=== PATIENT | female | born 1945 | race Caucasian/White ===

== ENCOUNTER 2022-11-13 11:10 | Emergency (ER) | payer MEDICARE, BC ==
--- NOTE | 2022-11-13 12:03 | ED ---
General Adult HPI - General Chief complaint: Fall Stated complaint: fall - head injury & hip pain Time Seen by Provider: 11/13/22 11:34 Source: patient, RN notes reviewed Mode of arrival: wheelchair Limitations: no limitations - History of Present Illness Initial comments: 77-year-old female presents emergency Department with chief complaint of fall. She states that she was on a rolling chair earlier today when it slipped out from under her and she fell backwards hitting the back of her head on the ground. She also reports landing on her right hip. She reports that she is able to walk but it is painful. Patient admits to mild headache. She is having any abrasions or lacerations on her head. - Related Data Home Medications Medication Instructions Recorded Confirmed Aspirin 81 mg PO DIRECTED 12/08/13 12/09/13 Atenolol/Chlorthalidone 1 tab PO DAILY 12/08/13 12/08/13 [Atenolol-Chlorthalidone 50-25] Cetirizine HCl [Zyrtec] 10 mg PO DAILY PRN 12/08/13 12/08/13 Colchicine [Colcrys] 0.6 mg PO DAILY PRN 12/08/13 12/08/13 Verapamil HCl [Verelan] 240 mg PO DAILY 12/08/13 12/08/13 sitaGLIPtin [Januvia] 100 mg PO DAILY 12/08/13 12/08/13 Allergies Allergy/AdvReac Type Severity Reaction Status Date / Time codeine Allergy Hallucinati Verified 11/13/22 11:29 ons Sulfa (Sulfonamide Allergy Rash/Hives Verified 11/13/22 11:29 Antibiotics) Review of Systems ROS Statement: Those systems with pertinent positive or pertinent negative responses have been documented in the HPI. ROS Other: All systems not noted in ROS Statement are negative. Past Medical History Past Medical History: Diabetes Mellitus, GERD/Reflux, Hyperlipidemia, Hypertension Additional Past Medical History / Comment(s): celiac History of Any Multi-Drug Resistant Organisms: None Reported Past Surgical History: Appendectomy, Cholecystectomy, Hysterectomy, Tonsillectomy Additional Past Surgical History / Comment(s): cardiac cath 3 or 4 years ago clear Past Anesthesia/Blood Transfusion Reactions: Previous Problems w/ Anesthesia Additional Past Anesthesia/Blood Transfusion Reaction / Comment(s): hard to wake up from Past Psychological History: No Psychological Hx Reported Smoking Status: Former smoker Past Alcohol Use History: None Reported Past Drug Use History: None Reported - Past Family History Mother Additional Family Medical History / Comment(s): emphazyma General Exam Limitations: no limitations General appearance: alert, in no apparent distress Head exam: Present: atraumatic, normocephalic, normal inspection Eye exam: Present: normal appearance, PERRL, EOMI. Absent: scleral icterus, conjunctival injection, periorbital swelling ENT exam: Present: normal exam, mucous membranes moist Neck exam: Present: normal inspection. Absent: tenderness, meningismus, lymphadenopathy Respiratory exam: Present: normal lung sounds bilaterally. Absent: respiratory distress, wheezes, rales, rhonchi, stridor Cardiovascular Exam: Present: regular rate, normal rhythm, normal heart sounds. Absent: systolic murmur, diastolic murmur, rubs, gallop, clicks GI/Abdominal exam: Present: soft, normal bowel sounds. Absent: distended, tenderness, guarding, rebound, rigid Extremities exam: Present: normal inspection, full ROM, normal capillary refill. Absent: tenderness, pedal edema, joint swelling, calf tenderness Back exam: Present: normal inspection Neurological exam: Present: alert, oriented X3, CN II-XII intact, other (GCS 15) Psychiatric exam: Present: normal affect, normal mood Skin exam: Present: warm, dry, intact, normal color. Absent: rash Course Vital Signs 11/13/22 11/13/22 11:26 13:43 Temperature 97.6 F 97.3 F L Pulse Rate 65 62 Respiratory 18 17 Rate Blood Pressure 153/81 150/62 O2 Sat by Pulse 99 97 Oximetry Medical Decision Making - Medical Decision Making Was pt. sent in by a medical professional or institution (, PA, MARINE WELDER, urgent care, hospital, or detention...) When possible be specific @ -No Did you speak to anyone other than the patient for history (EMS, parent, family, police, friend...)? What history was obtained from this source @ -No Did you review nursing and triage notes (agree or disagree)? Why? @ -I reviewed and agree with nursing and triage notes Were old charts reviewed (outside hosp., previous admission, EMS record, old EKG, old radiological studies, urgent care reports/EKG's, detention records)? Report findings @ -No old charts were reviewed Differential Diagnosis (chest pain, altered mental status, abdominal pain women, abdominal pain men, vaginal bleeding, weakness, fever, dyspnea, syncope, headache, dizziness, GI bleed, back pain, seizure, CVA, palpatations, mental health, musculoskeletal)? @ -Intracranial hemorrhage, headache, EKG interpreted by me (3pts min.). @ -None X-rays interpreted by me (1pt min.). @ -X-ray right hip and pelvis show no evidence of acute fracture CT interpreted by me (1pt min.). @ -CT brain and C-spine showed no evidence for acute intracranial hemorrhage, no fracture U/S interpreted by me (1pt. min.). @ -None done What testing was considered but not performed or refused? (CT, X-rays, U/S, labs)? Why? @ -None What meds were considered but not given or refused? Why? @ -None Did you discuss the management of the patient with other professionals (professionals i.e. , PA, MARINE WELDER, lab, RT, psych nurse, forensic social worker, roll sheeting cutter, teacher, home lending officer, rifle case repairer)? Give summary @ -No Was smoking cessation discussed for >3mins.? @ -No Was critical care preformed (if so, how long)? @ -No Were there social determinants of health that impacted care today? How? (Homelessness, low income, unemployed, alcoholism, drug addiction, transportation, low edu. Level, literacy, decrease access to med. care, detention, rehab)? @ -No Was there de-escalation of care discussed even if they declined (Discuss DNR or withdrawal of care, Hospice)? DNR status @ -No What co-morbidities impacted this encounter? (DM, HTN, Smoking, COPD, CAD, Cancer, CVA, ARF, Chemo, Hep., AIDS, mental health diagnosis, sleep apnea, morbid obesity)? @ -None Was patient admitted / discharged? Hospital course, mention meds given and rout e, prescriptions, significant lab abnormalities, going to OR and other pertinent info. @ -Discharged. Patient presented to emergency department chief complaint of fall. She states that she hit her head on the ground. She denies loss of consciousness, blood thinners. CT brain and C-spine showed no evidence for acute intracranial hemorrhage, no evidence of fracture. X-ray of right hip and pelvis showed no evidence for acute fracture. Patient is able to ambulate although painful. She states that she has a walker at home that she will use. Patient was given IM Toradol after computed tomography scan report back, Tylenol, lidocaine patch. Patient stable at time of discharge. she'll follow up with her primary care provider when she returns back home to anyone. His di scussed with my attending, Dr. Ghosh. Undiagnosed new problem with uncertain prognosis? @ -No Drug Therapy requiring intensive monitoring for toxicity (Heparin, Nitro, Insulin, Cardizem)? @ -No Were any procedures done? @ -No Diagnosis/symptom? @ -Fall Acute, or Chronic, or Acute on Chronic? @ -Acute Uncomplicated (without systemic symptoms) or Complicated (systemic symptoms)? @ -Uncomplicated Side effects of treatment? @ -No Exacerbation, Progression, or Severe Exacerbation? @ -No Poses a threat to life or bodily function? How? (Chest pain, USA, SC, pneumonia, PE, COPD, DKA, ARF, appy, cholecystitis, CVA, Diverticulitis, Homicidal, Suicidal, threat to staff... and all critical care pts) @ -No Disposition Clinical Impression: Fall Disposition: HOME SELF-CARE Condition: Stable Instructions (If sedation given, give patient instructions): Fall Prevention for Older Adults (ED) Additional Instructions: Please return to the emergency department for new or worsening symptoms. Is patient prescribed a controlled substance at d/c from ED?: No Referrals: Nonstaff,Physician [Primary Care Provider] - 1-2 days Time of Disposition: 13:16
--- NOTE | 2022-11-13 12:37 | CT ---
EXAMINATION TYPE: CT brain jack wo con DATE OF EXAM: 11/13/2022 COMPARISON: None HISTORY: Pain headache CT DLP: 1519.8 mGycm, Automated exposure control for dose reduction was used. CONTRAST: Patient injected with 0 mL of Isovue 300. CT of the brain is performed utilizing 3 mm thick sections through the posterior fossa and 3 mm thick sections through the remaining calvarium. Study is performed within 24 hours of arrival to the hospital. No abnormal hyperdensity is present to suggest an acute intracranial hemorrhage. No mass lesion is evident. No acute infarcts are evident. Minimal periventricular white matter hypodensity may present, likely on the basis of chronic white matter ischemic changes. Ventricles and sulci are somewhat prominent for the patient age. Paranasal sinuses and mastoid air cells within the [id number] are clear. IMPRESSIONS: 1. No acute intracranial process. Follow-up MRI can be performed as clinically indicated CT cervical spine. COMPARISON: None CT of the cervical spine is performed in the axial plane at 2 mm thick sections. Reconstructed image s in the coronal, and sagittal plane are reviewed on the computer. No acute fractures are evident. Vertebral body alignment is normal. There is narrowing of disc height C4-5 C5-6 C6-7. Some endplate spurring is present C4-5 C5-6. Anteri or vertebral body spurring is present C3-C7. Vertebral body heights are preserved. No spinal canal stenosis is evident. Some central endplate spurring is present at C6-7 with mild ante rior thecal sac compression. Endplate changes have anterior thecal sac compression at C4-5. Mild foraminal narrowing is present due to uncovertebral joint hypertrophy IMPRESSIONS: 1. Degenerative disc changes with endplate spurring most notably C4-5 C5-6. 2. No acute osseous abnormality
--- NOTE | 2022-11-13 12:39 | XR ---
EXAMINATION TYPE: XR Hip RT and AP Pelvis DATE OF EXAM: 11/13/2022 COMPARISON: None HISTORY: Fall back pain TECHNIQUE: AP pelvis and two-view right hip FINDINGS: Femoral head articulates with the acetabulum. Joint space is preserved. No acute fracture o r dislocation is evident. Sacroiliac joints and symphysis pubis are normal. Normal bowel gas is prese nt. IMPRESSION: 1. No acute osseous abnormality right hip
--- NOTE | 2022-11-13 12:40 | XR ---
EXAMINATION TYPE: XR lumbar spine 2 or 3V DATE OF EXAM: 11/13/2022 COMPARISON: None HISTORY: Fall, back pain TECHNIQUE: 3 view lumbar spine FINDINGS: There are 5 lumbar-type vertebral bodies. The pedicles are intact. Posterior disc space josephine rowing may be present at L3-4, L4-5 and L5-S1. Vertebral body heights are preserved. Alignment appear s normal. Note is made of vascular calcification within the aorta IMPRESSION: 1. Mild degenerative disc changes lower lumbar spine. 2. No acute osseous abnormality
[2022-11-13] MEDS ORDERED: ACETAMINOPHEN TAB 500 MG TAB PO STA (12:43)
[2022-11-13] MEDS ORDERED: LIDOCAINE 5% PATCH TOPICAL STA (12:43)
[2022-11-13] MEDS ORDERED: KETOROLAC 15 MG/ML 1 ML VIAL IM STA (12:43)
[2022-11-13 13:44] VITALS: BP 150/62; PULSE 62; RESP 17; TEMP 97.3
== END 2022-11-13 13:43 | disposition home or self-care (01) ==
LOC: EC 11:10
DX: S09.90XA Unspecified injury of head, initial encounter (principal); E11.9 Type 2 diabetes mellitus without complications; K21.9 Gastro-esophageal reflux disease without esophagitis; I10 Essential (primary) hypertension; Z87.891 Personal history of nicotine dependence; Z88.2 Allergy status to sulfonamides; Z88.5 Allergy status to narcotic agent; Z79.82 Long term (current) use of aspirin; W01.198A Fall on same level from slipping, tripping and stumbling with subsequent striking against other object, initial encounter
CPT/HCPCS: 72100; 73502; 72125; 70450; 99284; 96372; J1885

== ENCOUNTER 2022-11-15 12:26 | Observation (INO) | payer MEDICARE, BC ==
[2022-11-15] MEDS ORDERED: SCOPOLAMINE 1 MG/72 HR PATCH TRANSDERM STA (12:56)
[2022-11-15 13:33] LABS: Basophils # (A) 0.1 k/uL (0-0.2); Basophils % (A) 1 %; Eosinophils # (A) 0.2 k/uL (0-0.7); Eosinophils % (A) 4 %; HCT 38.4 % (34.0-46.0); HGB 13.1 gm/dL (11.4-16.0); Lymphocytes % (A) 30 %; MCH 28.9 pg (25.0-35.0); MCHC 34.1 g/dL (31.0-37.0); MCV 84.6 fL (80.0-100.0); Mean Platelet Volume 8.6; Monocytes # (A) 0.3 k/uL (0-1.0); Monocytes % (A) 4 %; Neutrophils # (A) 4.2 k/uL (1.3-7.7); Neutrophils % (A) 61 %; Platelet Count 157 k/uL (150-450); RBC 4.54 m/uL (3.80-5.40); RDW 14.7 % (11.5-15.5); WBC 6.9 k/uL (3.8-10.6)
[2022-11-15 13:41] LABS: ALT 20 U/L (4-34); AST 27 U/L (14-36); African American GFR (CKD) 61 (>60 ml/min/1.73 sqM); Albumin 3.8 g/dL (3.5-5.0); Alkaline Phosphatase 71 U/L (38-126); Anion Gap 9 mmol/L; Blood Urea Nitrogen 29 mg/dL (7-17); Calcium 9.8 mg/dL (8.4-10.2); Carbon Dioxide 22 mmol/L (22-30); Chloride 108 mmol/L (98-107); Glucose 150 mg/dL (74-99); Non-African American GFR(CKD) 53 (>60 ml/min/1.73 sqM); Potassium 4.5 mmol/L (3.5-5.1); Sodium 139 mmol/L (137-145); Total Bilirubin 0.4 mg/dL (0.2-1.3); Total Protein 7.1 g/dL (6.3-8.2)
--- NOTE | 2022-11-15 14:15 | ED ---
General Adult HPI - General Chief complaint: Dizziness Stated complaint: Dizziness recheck from 11/13 visit (fall) Time Seen by Provider: 11/15/22 12:30 Source: patient, family, RN notes reviewed, old records reviewed Mode of arrival: wheelchair Limitations: physical limitation - History of Present Illness Initial comments: This is a 77-year-old female presents emergency Department complaining about being very dizzy. Patient states she was seen here a few days ago after she had fallen and hit the back of her head quite hard. Patient states she was dazed after that did not lose consciousness. Patient states she came to the emergency department and was evaluated had a CAT scan at that time. Patient states about 5 hours after she left she started becoming very dizzy particularly when she bent over. Patient states she's has had vertigo before but this seems worse. Patient states she sits still she is not dizzy. Patient denies a headache pat ient denies any numbness or weakness per patient denies chest pain palpitations difficulty breathing shortness of breath. - Related Data Home Medications Medication Instructions Recorded Confirmed Aspirin EC [Ecotrin Low Dose] 81 mg PO DAILY 11/15/22 11/15/22 Atorvastatin [Lipitor] 10 mg PO DAILY 11/15/22 11/15/22 Brimonidine Tartrate/Timolol 1 drop BOTH EYES BID 11/15/22 11/15/22 [Combigan 0.2%-0.5% Eye Drops] Glimepiride [Amaryl] 4 mg PO BID 11/15/22 11/15/22 Lisinopril/Hydrochlorothiazide 1 tab PO DAILY 11/15/22 11/15/22 [Zestoretic 20-12.5] Vit C/E/Zn/Coppr/Lutein/Zeaxan 1 cap PO BID 11/15/22 11/15/22 [Preservision Areds 2 Softgel] atenoloL [Tenormin] 50 mg PO BID 11/15/22 11/15/22 sitaGLIPtin PHOS/metFORMIN HCL 1 tab PO DAILY 11/15/22 11/15/22 [Janumet Xr 100-1,000 mg Tablet] Previous Rx's Medication Instructions Recorded Cyanocobalamin [Vitamin B-12] 1,000 mcg PO DAILY #60 tab 11/18/22 Meclizine [Antivert] 25 mg PO TID PRN #30 tab 11/18/22 amLODIPine [Norvasc] 10 mg PO DAILY #60 tab 11/18/22 Allergies Allergy/AdvReac Type Severity Reaction Status Date / Time codeine Allergy Hallucinati Verified 11/15/22 15:44 ons Sulfa (Sulfonamide Allergy Rash/Hives Verified 11/15/22 15:44 Antibiotics) Review of Systems ROS Statement: Those systems with pertinent positive or pertinent negative responses have been documented in the HPI. ROS Other: All systems not noted in ROS Statement are negative. Past Medical History Past Medical History: Diabetes Mellitus, GERD/Reflux, Hyperlipidemia, Hypertension Additional Past Medical History / Comment(s): celiac History of Any Multi-Drug Resistant Organisms: None Reported Past Surgical History: Appendectomy, Cholecystectomy, Hysterectomy, Tonsillectomy Additional Past Surgical History / Comment(s): cardiac cath 3 or 4 years ago clear Past Anesthesia/Blood Transfusion Reactions: Previous Problems w/ Anesthesia Additional Past Anesthesia/Blood Transfusion Reaction / Comment(s): hard to wake up from Past Psychological History: No Psychological Hx Reported Smoking Status: Former smoker Past Alcohol Use History: None Reported Past Drug Use History: None Reported - Past Family History Mother Additional Family Medical History / Comment(s): emphazyma General Exam - General Exam Comments Initial Comments: GENERAL: Patient is well-developed and well-nourished. Patient is nontoxic and well-hydrated and is in mild distress. ENT: Neck is soft and supple. No significant lymphadenopathy is noted. Oropharynx is clear. Moist mucous membranes. Neck has full range of motion without eliciting any pain. EYES: The sclera were anicteric and conjunctiva were pink and moist. Extraocular movements were intact and pupils were equal round and reactive to light. Eyelids were unremarkable. PULMONARY: Unlabored respirations. Good breath sounds bilaterally. No audible rales rhonchi or wheezing was noted. CARDIOVASCULAR: There is a regular rate and rhythm without any murmurs gallops or rubs. ABDOMEN: Soft and nontender with normal bowel sounds. SKIN: Skin is clear with no lesions or rashes and otherwise unremarkable. NEUROLOGIC: Patient is alert and oriented x3. Cranial nerves II through XII are grossly intact. Motor and sensory are also intact. Normal speech, volume and content. Symmetrical smile. Cerebellar exam grossly intact. Patient's dizziness is worsened if she moves her head up and down but not side to side MUSCULOSKELETAL: Normal extremities with adequate strength and full range of motion. No lower extremity swelling or edema. No calf tenderness. LYMPHATICS: No significant lymphadenopathy is noted PSYCHIATRIC: Normal psychiatric evaluation. Limitations: physical limitation Course Vital Signs 11/15/22 11/15/22 11/15/22 12:29 12:42 12:46 Temperature 97.8 F 97.9 F Pulse Rate 70 67 Respiratory 16 18 Rate Blood Pressure 136/73 143/65 O2 Sat by Pulse 98 96 97 Oximetry 11/15/22 11/15/22 11/15/22 13:00 14:00 15:00 Temperature Pulse Rate Respiratory Rate Blood Pressure 143/65 140/82 138/78 O2 Sat by Pulse Oximetry 11/15/22 11/15/22 18:16 21:27 Temperature 98.6 F Pulse Rate 54 L 57 L Respiratory 18 19 Rate Blood Pressure 172/81 172/74 O2 Sat by Pulse 98 97 Oximetry Medical Decision Making - Medical Decision Making Was pt. sent in by a medical professional or institution (, PA, WATCHGUARD, urgent care, hospital, or fdc...) When possible be specific @ -[No] Did you speak to anyone other than the patient for history (EMS, parent, family, police, friend...)? What history was obtained from this source @ -[No] Did you review nursing and triage notes (agree or disagree)? Why? @ -I agree with nursing and triage notes Were old charts reviewed (outside hosp., previous admission, EMS record, old EKG, old radiological studies, urgent care reports/EKG's, fdc records)? Report findings @ -I reviewed prior charts and prior radiological studies in this patient Differential Diagnosis (chest pain, altered mental status, abdominal pain women, abdominal pain men, vaginal bleeding, weakness, fever, dyspnea, syncope, headache, dizziness, GI bleed, back pain, seizure, CVA, palpatations, mental health, musculoskeletal)? @ -[not applicable] EKG interpreted by me (3pts min.). @ -[As above] X-rays interpreted by me (1pt min.). @ -[None done] CT interpreted by me (1pt min.). @ -[None done] U/S interpreted by me (1pt. min.). @ -[None done] What testing was considered but not performed or refused? (CT, X-rays, U/S, labs)? Why? @ -[None] What meds were considered but not given or refused? Why? @ -[None] Did you discuss the management of the patient with other professionals (professionals i.e. , PA, WATCHGUARD, lab, RT, psych nurse, social professionals, weekend caregiver, teacher, chief science officer, case packer)? Give summary @ -[No] Was smoking cessation discussed for >3mins.? @ -[No] Was critical care preformed (if so, how long)? @ -[No] Were there social determinants of health that impacted care today? How? (Homelessness, low income, unemployed, alcoholism, drug addiction, transportat ion, low edu. Level, literacy, decrease access to med. care, penitentiary, rehab)? @ -[No] Was there de-escalation of care discussed even if they declined (Discuss DNR or withdrawal of care, Hospice)? DNR status @ -[No] What co-morbidities impacted this encounter? (DM, HTN, Smoking, COPD, CAD, Cancer, CVA, ARF, Chemo, Hep., AIDS, mental health diagnosis, sleep apnea, morbid obesity)? @ -[None] Was patient admitted / discharged? Hospital course, mention meds given and route, prescriptions, significant lab abnormalities, going to OR and other pertinent info. @ -I gave the patient a scopolamine patch. Patient had labs ordered and a CT and a CTA ordered. Dr. Ghosh will be taking over the care of the patient at 3 PM - Lab Data Result diagrams: 11/15/22 13:06 11/15/22 13:06 Lab Results 11/15/22 11/15/22 Range/Units 13:06 13:06 WBC 6.9 (3.8-10.6) k/uL RBC 4.54 (3.80-5.40) m/uL Hgb 13.1 (11.4-16.0) gm/dL Hct 38.4 (34.0-46.0) % MCV 84.6 (80.0-100.0) fL MCH 28.9 (25.0-35.0) pg MCHC 34.1 (31.0-37.0) g/dL RDW 14.7 (11.5-15.5) % Plt Count 157 (150-450) k/uL MPV 8.6 Neutrophils % 61 % Lymphocytes % 30 % Monocytes % 4 % Eosinophils % 4 % Basophils % 1 % Neutrophils # 4.2 (1.3-7.7) k/uL Lymphocytes # 2.0 (1.0-4.8) k/uL Monocytes # 0.3 (0-1.0) k/uL Eosinophils # 0.2 (0-0.7) k/uL Basophils # 0.1 (0-0.2) k/uL Sodium 139 (137-145) mmol/L Potassium 4.5 (3.5-5.1) mmol/L Chloride 108 H (98-107) mmol/L Carbon Dioxide 22 (22-30) mmol/L Anion Gap 9 mmol/L BUN 29 H (7-17) mg/dL Creatinine 1.01 (0.52-1.04) mg/dL Est GFR (CKD-EPI)AfAm 61 (>60 ml/min/1.73 sqM) Est GFR (CKD-EPI)NonAf 53 (>60 ml/min/1.73 sqM) Glucose 150 H (74-99) mg/dL Calcium 9.8 (8.4-10.2) mg/dL Total Bilirubin 0.4 (0.2-1.3) mg/dL AST 27 (14-36) U/L ALT 20 (4-34) U/L Alkaline Phosphatase 71 (38-126) U/L Total Protein 7.1 (6.3-8.2) g/dL Albumin 3.8 (3.5-5.0) g/dL Disposition Clinical Impression: Vertigo, CVA (cerebral vascular accident) Disposition: ADMITTED IP TO THIS [facility] Condition: Stable
--- NOTE | 2022-11-15 15:40 | CT ---
EXAMINATION TYPE: CT brain wo con DATE OF EXAM: 11/15/2022 COMPARISON: 11/13/2022 HISTORY: Fall last week, dizzy since CT DLP: 1123.[address] of the brain was performed. The ventricles, basal cisterns and sulci overlying the cerebral convexities demonstrate mild enlargem ent. There is no evidence for intracranial hemorrhage or sulcal effacement. There is decreased attenuation about the periventricular white matter and deep white matter of both c erebral hemispheres, compatible with chronic small vessel ischemia. Differential diagnosis does inclu de demyelination. No mass effects are seen.No midline shift. Osseous calvarium is intact. If symptoms persist consider MRI. IMPRESSION: 1. Age related atrophic and chronic small vessel ischemic change without acute intracranial process s een at this time.
--- NOTE | 2022-11-15 15:57 | CT ---
EXAMINATION TYPE: CT angio head neck DATE OF EXAM: 11/15/2022 COMPARISON: None HISTORY: Fall last week, dizzy since CT DLP: 1123.6 mGycm CONTRAST: Performed with IV Contrast, patient injected with 65 mL of Isovue 370. Combination Contrast CTA cervical carotids and [place] CTA cervical carotids with 3-D recons truction Contrast CTA of the cervical carotids was performed 3-D reconstruction imaging obtained at a separate workstation. Right carotid system: Mild plaque is seen of the right common carotid artery. There is moderate plaq ue also noted at the carotid bulb and proximal ICA. 50% diameter reduction mid left ICA with moderat e calcific plaque. ECA is patent. Right vertebral artery appears unremarkable. Left carotid system: Mild plaque is seen of the left common carotid artery. There is mild plaque als o noted at the carotid bulb and proximal ICA. No significant diameter reduction. ECA is patent. Lef t vertebral artery appears unremarkable. IMPRESSION: 1. 50% diameter reduction right ICA. CTA [place] with 3-D reconstruction Contrast CTA of the [place] was performed 3-D reconstruction imaging obtained at a separate workstation. Vertebrobasilar system as well as intracranial portions of the internal carotid arteries are patent. There is absence of the right GURVINDER A1 segment which could be an anatomic variant. Strict clinical cor relation is advised. The remaining segments appear to be intact. I do not see evidence for sizable an eurysm or vascular malformation. Please note MRI provides greater sensitivity and specificity. Visu alized brain appears grossly unremarkable. IMPRESSION: 1. There is absence of the right GURVINDER A1 segment which could be an anatomic variant. Strict clinical c orrelation is advised to exclude large vessel occlusion. NASCET criteria was used in interpretation of this exam?
[2022-11-15] MEDS ORDERED: NALOXONE 0.4 MG/ML 1 ML VIAL IV PRN (19:06)
--- NOTE | 2022-11-15 19:06 | ED ---
Medical Decision Making - Medical Decision Making The patient was sent out to me from Dr. Grimes. The patient was signed out pend ing lesion of the imaging. Imaging was obtained and is as below however due to the findings the neuro interventional list, Dr. Ga was contacted regarding these findings. He did state that it was likely an anatomic variant and was not a large vessel occlusions that needed any intervention at this time. He stated the patient could be admitted for further workup at this time. On reevaluation, the patient was resting in bed comfortably. Due to the symptoms and findings, the patient be placed in observation to be seen and evaluated by neurology for possible MRI for possible CVA as a cause of her vertigo. The patient stated that she had continued vertigo symptoms when looking down. The patient was agreeable to this plan and was placed in observation in stable condition. CT interpreted by me (1pt min.). @- A CT and CTA head and neck were obtained and were interpreted by myself and the radiologist showing an absence of the right GURVINDER A1 segment which could be an anatomic variant. Strict clinical correlation is advised to exclude large vessel occlusion. Undiagnosed new problem with uncertain prognosis? @ -[No] Drug Therapy requiring intensive monitoring for toxicity (Heparin, Nitro, Insulin, Cardizem)? @ -[No] Were any procedures done? @ -[No] Diagnosis/symptom? @ -Vertigo, rule out CVA Acute, or Chronic, or Acute on Chronic? @ -Acute on chronic Uncomplicated (without systemic symptoms) or Complicated (systemic symptoms)? @ -Complicated Side effects of treatment? @ -[No] Exacerbation, Progression, or Severe Exacerbation? @ -[No] Poses a threat to life or bodily function? How? (Chest pain, USA, ND, pneumonia, PE, COPD, DKA, ARF, appy, cholecystitis, CVA, Diverticulitis, Homicidal, Suicidal, threat to staff... and all critical care pts) @ -[No] - Lab Data Result diagrams: 11/15/22 13:06 11/15/22 13:06 Lab Results 11/15/22 11/15/22 Range/Units 13:06 13:06 WBC 6.9 (3.8-10.6) k/uL RBC 4.54 (3.80-5.40) m/uL Hgb 13.1 (11.4-16.0) gm/dL Hct 38.4 (34.0-46.0) % MCV 84.6 (80.0-100.0) fL MCH 28.9 (25.0-35.0) pg MCHC 34.1 (31.0-37.0) g/dL RDW 14.7 (11.5-15.5) % Plt Count 157 (150-450) k/uL MPV 8.6 Neutrophils % 61 % Lymphocytes % 30 % Monocytes % 4 % Eosinophils % 4 % Basophils % 1 % Neutrophils # 4.2 (1.3-7.7) k/uL Lymphocytes # 2.0 (1.0-4.8) k/uL Monocytes # 0.3 (0-1.0) k/uL Eosinophils # 0.2 (0-0.7) k/uL Basophils # 0.1 (0-0.2) k/uL Sodium 139 (137-145) mmol/L Potassium 4.5 (3.5-5.1) mmol/L Chloride 108 H (98-107) mmol/L Carbon Dioxide 22 (22-30) mmol/L Anion Gap 9 mmol/L BUN 29 H (7-17) mg/dL Creatinine 1.01 (0.52-1.04) mg/dL Est GFR (CKD-EPI)AfAm 61 (>60 ml/min/1.73 sqM) Est GFR (CKD-EPI)NonAf 53 (>60 ml/min/1.73 sqM) Glucose 150 H (74-99) mg/dL Calcium 9.8 (8.4-10.2) mg/dL Total Bilirubin 0.4 (0.2-1.3) mg/dL AST 27 (14-36) U/L ALT 20 (4-34) U/L Alkaline Phosphatase 71 (38-126) U/L Total Protein 7.1 (6.3-8.2) g/dL Albumin 3.8 (3.5-5.0) g/dL Disposition Clinical Impression: Vertigo, CVA (cerebral vascular accident) Disposition: ADMITTED IP TO THIS [facility] Condition: Stable Is patient prescribed a controlled substance at d/c from ED?: No Referrals: Nonstaff,Physician [Primary Care Provider] - 1-2 days Time of Disposition: 17:00 Decision to Admit Reason: Admit from EC Decision Date: 11/15/22 Decision Time: 17:00
--- NOTE | 2022-11-16 02:35 | P.HPIM ---
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 this all started after she accidentally slipped off an unlocked chair on Monday , the chair slipped from under her while she was trying to stand up , she fell forward and hit her head. after which she started feeling dizzy, she denies any history of stroke, denies being on blood thinners, or aspirin (which she stopped about 2 weeks ago ). she was here for evaluation on Monday and discharged home, however, her daughter told her a story about someone she knew, who had a similar accident and initial workup was fine, but then later found to have a brain bleeding. she grew concerned today , especially due to worsening of her dizziness symptoms and decided to come in again for evaluation . she otherwise denies any other new onset focal neuro deficits. denies headache, vision changes , or hearing changes . denies any chest pain , URI symptoms , abd pain , nausea vomting, or changes in bowel r urinary habits. denies tobacco smoking illicit drugs or alcohol review of systems Pertinent positives as noted in HPI. All other systems were reviewed and are negative on exam Constitutional: No acute distress, conversant, pleasant Eyes: Anicteric sclerae, moist conjunctiva, Pupils equal round reactive to light ENMT: NC/AT Oropharynx clear, no erythema, or exudates Neck: Supple, no masses, or JVD No carotid bruits No thyromegaly Lungs: Clear to auscultation Clear to percussion Normal respiratory effort, no accessory muscle use Cardiovascular: Heart regular in rate and rhythm, No murmurs, gallops, or rubs No peripheral edema Abdominal: Soft Nontender, no guarding, rebound or rigidity Abdomen moving with respiration Normoactive bowel sounds No hepatomegaly, No splenomegaly No palpable mass No abdominal wall hernia noted Skin: Normal temperature, tone, texture, turgor No induration No subcutaneous nodules No rash, lesions No ulcers Extremities: No digital cyanosis No clubbing Pedal pulses intact and symmetrical Radial pulses intact and symmetrical No calf tenderness Psychiatric: Alert and oriented to person, place and time Appropriate affect fair judgement Neuro Muscles Strength 5/5 in all 4 extremities Sensation to light touch grossly present throughout Cranial nerves II-XII grossly intact finger nose test unremarkable Lymphatics: no palpable cervical or supraclavicular lymph nodes Past Medical History Past Medical History: Diabetes Mellitus, GERD/Reflux, Hyperlipidemia, Hypertension Additional Past Medical History / Comment(s): celiac History of Any Multi-Drug Resistant Organisms: None Reported Past Surgical History: Appendectomy, Cholecystectomy, Hysterectomy, Tonsillectomy Additional Past Surgical History / Comment(s): cardiac cath 3 or 4 years ago clear Past Anesthesia/Blood Transfusion Reactions: Previous Problems w/ Anesthesia Additional Past Anesthesia/Blood Transfusion Reaction / Comment(s): hard to wake up from Past Psychological History: No Psychological Hx Reported Smoking Status: Never smoker Past Alcohol Use History: None Reported Past Drug Use History: None Reported - Past Family History Mother Additional Family Medical History / Comment(s): emphazyma Medications and Allergies Home Medications Medication Instructions Recorded Confirmed Type Aspirin EC [Ecotrin Low Dose] 81 mg PO DAILY 11/15/22 11/15/22 History Atorvastatin [Lipitor] 10 mg PO DAILY 11/15/22 11/15/22 History Brimonidine Tartrate/Timolol 1 drop BOTH EYES BID 11/15/22 11/15/22 History [Combigan 0.2%-0.5% Eye Drops] Glimepiride [Amaryl] 4 mg PO BID 11/15/22 11/15/22 History Lisinopril/Hydrochlorothiazide 1 tab PO DAILY 11/15/22 11/15/22 History [Zestoretic 20-12.5] Vit C/E/Zn/Coppr/Lutein/Zeaxan 1 cap PO BID 11/15/22 11/15/22 History [Preservision Areds 2 Softgel] atenoloL [Tenormin] 50 mg PO BID 11/15/22 11/15/22 History hydrALAZINE HCL [Apresoline] 100 mg PO TID 11/15/22 11/15/22 History sitaGLIPtin PHOS/metFORMIN HCL 1 tab PO DAILY 11/15/22 11/15/22 History [Janumet Xr 100-1,000 mg Tablet] Allergies Allergy/AdvReac Type Severity Reaction Status Date / Time codeine Allergy Hallucinati Verified 11/15/22 15:44 ons Sulfa (Sulfonamide Allergy Rash/Hives Verified 11/15/22 15:44 Antibiotics) Physical Exam Vitals: Vital Signs Temp Pulse Pulse Resp BP BP Pulse Ox 11/16/22 00:00 98.1 F 71 14 167/70 98 11/15/22 22:50 97.9 F 54 L 15 187/80 98 11/15/22 21:27 57 L 19 172/74 97 11/15/22 18:16 98.6 F 54 L 18 172/81 98 11/15/22 15:00 138/78 11/15/22 14:00 140/82 11/15/22 13:00 143/65 11/15/22 12:46 97 11/15/22 12:42 97.9 F 67 18 143/65 96 11/15/22 12:29 97.8 F 70 16 136/73 98 Intake and Output 11/15/22 11/15/22 11/16/22 14:59 22:59 06:59 Other: Voiding Method Toilet Weight 86.183 kg 86.183 kg Results CBC & Chem 7: 11/15/22 13:06 11/15/22 13:06 Labs: Abnormal Lab Results - Last 24 Hours (Table) 11/15/22 Range/Units 13:06 Chloride 108 H (98-107) mmol/L BUN 29 H (7-17) mg/dL Glucose 150 H (74-99) mg/dL Thrombosis Risk Factor Assmnt - Choose All That Apply Any of the Below Risk Factors Present?: No Other Risk Factors: Yes Each Risk Factor Represents 3 Points: Age 75 years or older Thrombosis Risk Factor Assessment Total Risk Factor Score: 3 Thrombosis Risk Factor Assessment Level: Moderate Risk Assessment and Plan Assessment: 77 year old female with DM and HLD, coming in for persistent dizziness after a close head injury 2 days ago , I discussed the case with ed doc and I accepted the admission for neuro monitoring and evaluation with anticipated length of stay < [address] brain no acute pathology CTA head and neck showed 50% right ICA, interpreted by radiologist showing an absence of the right GURVINDER A1 segment which could be an anatomic variant. neuro interventional l Dr. Ga was contacted by ED, regarding these findings. He did state that it was likely an anatomic variant and was not a large vessel occlusions that needed any intervention at this time await neurology evaluation neuro checks fall precautions PT eval resume ASA and statin chronic condition s DM , patient refusing insulin sliding scale , and requesting to be kept on her Oral hypoglycemic pills HTN, resume lisinopril , HCTZ, hydralazin celiac disease gluten free diet blood work unremarkable Hgb 13.1, WBC 6.9 BUN 29 cr 1.01 full code DVT PPX heparin sc tid 5000 units
[2022-11-16 05:35] LABS: Glucose,Whole Blood 129 mg/dL (70-110)
[2022-11-16] MEDS: atenoloL 50 MG TAB PO SCH ×2 (07:48→20:32)
[2022-11-16] MEDS: GLIMEPIRIDE 4 MG TAB PO SCH ×2 (07:48→20:31)
[2022-11-16] MEDS: HEPARIN SODIUM,PORCINE 5,000 UNIT/ML 1 ML VIAL SQ SCH ×3 (07:49→20:32)
[2022-11-16] MEDS: metFORMIN 500 MG TAB PO SCH ×2 (07:49→09:01)
[2022-11-16] MEDS: LISINOPRIL-HCTZ 20-12.5 MG 1 EACH TAB PO SCH (07:49)
[2022-11-16] MEDS: TIMOLOL 0.5% OPHTH DROPS 5 ML BTL BOTH EYES SCH ×2 (07:50→20:31)
[2022-11-16] MEDS: LINAGLIPTIN 5 MG TABLET PO SCH (07:50)
[2022-11-16] MEDS: BRIMONIDINE TARTRATE 0.2% DROPS 5 ML BTL BOTH EYES SCH ×2 (07:50→20:31)
[2022-11-16] MEDS: ATORVASTATIN 10 MG TAB PO SCH (07:50)
[2022-11-16] MEDS: ASPIRIN 81 MG PO SCH (07:56)
[2022-11-16] MEDS ORDERED: hydrALAZINE HCL 50 MG TAB PO SCH (09:00)
[2022-11-16 11:24] LABS: Glucose,Whole Blood 117 mg/dL (70-110)
--- NOTE | 2022-11-16 13:20 | P.PN ---
Subjective Progress Note Date: 11/16/22 Hospital Course: 77-year-old female with severe hypertension, diabetes mellitus, dyslipidemia presenting with persistent dizziness and lightheadedness. Positive for orthostatic hypotension. Has been hypertensive labs mostly unremarkable. CT had did not show any acute process. CT angiogram head and neck showed absence of right GURVINDER A1 segment which could be an anatomic variant. Patient admitted for further workup for dizziness and lightheadedness and possible stroke. Neurology consulted. Echocardiogram pending. Subjective: She is seen and examined at bedside. No acute events overnight. Her symptoms are only present when she gets out of the bed. Her symptoms are more consistent with lightheadedness. Pertinent positives and negatives as discussed above, a complete review of systems was performed and all other systems are negative. Vitals Signs Reviewed. General: nontoxic, no distress, appears at stated age Derm: warm, dry Head: atraumatic, normocephalic, symmetric Eyes: EOMI, no lid lag, anicteric sclera Mouth: no lip lesion, mucus membranes moist Cardiovascular: S1S2 reg, no murmur Lungs: CTA bilateral, no rhonchi, no rales , no accessory muscle use Abdominal: soft, nontender to palpation, no guarding, no appreciable organomegaly Ext: no gross muscle atrophy, no edema, no contractures Neuro: CN II-XI grossly intact, no focal neuro deficits Psych: Alert, oriented, appropriate affect Data Reviewed Today: Pertinent Labs: Blood glucose range between 117-150 Imaging: No new imaging Assessment and Plan: Orthostatic hypotension Presyncope/syncope Vertigo Absence of right GURVINDER A1 segment Hypertension, uncontrolled Diabetes mellitus -Positive for orthostatic -Possibly related to hydralazine -Discontinued hydralazine, started on amlodipine -Lisinopril, hydrochlorothiazide, atenolol continued -Echocardiogram pending -Neurology consulted -Continue home antidiabetics DVT ppx: Subcu heparin Code status: Full Code Anticipated discharge place: Pending clinical course Anticipated discharge time: Pending clinical course Objective - Vital Signs Vital signs: Vital Signs Temp 97.9 F 11/16/22 11:28 Pulse 54 L 11/16/22 11:28 Resp 16 11/16/22 11:28 BP 133/60 11/16/22 11:28 Pulse Ox 99 11/16/22 11:28 FiO2 Intake & Output 11/15/22 11/16/22 11/16/22 18:59 06:59 18:59 Intake Total 350 Balance 350 Weight 86.183 kg 86.183 kg Intake: Oral 350 Other: Voiding Method Toilet Toilet # Voids 1 1 # Bowel Movements 1 1 - Labs CBC & Chem 7: 11/15/22 13:06 11/15/22 13:06 Labs: Abnormal Lab Results - Last 24 Hours (Table) 11/15/22 11/16/22 11/16/22 Range/Units 13:06 05:34 11:22 Chloride 108 H (98-107) mmol/L BUN 29 H (7-17) mg/dL Glucose 150 H (74-99) mg/dL POC Glucose (mg/dL) 129 H 117 H (70-110) mg/dL
[2022-11-16] MEDS: amLODIPine 10 MG TAB PO SCH (13:22)
[2022-11-16 13:42] VITALS: BMI 33.6
[2022-11-16 16:27] LABS: Glucose,Whole Blood 115 mg/dL (70-110)
[2022-11-16 20:08] LABS: Glucose,Whole Blood 92 mg/dL (70-110)
[2022-11-17 06:08] LABS: Glucose,Whole Blood 132 mg/dL (70-110)
[2022-11-17] MEDS: HEPARIN SODIUM,PORCINE 5,000 UNIT/ML 1 ML VIAL SQ SCH ×2 (08:37→16:14)
[2022-11-17] MEDS: amLODIPine 10 MG TAB PO SCH (08:38)
[2022-11-17] MEDS: atenoloL 50 MG TAB PO SCH ×2 (08:38→21:10)
[2022-11-17] MEDS: ASPIRIN 81 MG PO SCH (08:38)
[2022-11-17] MEDS: ATORVASTATIN 10 MG TAB PO SCH (08:38)
[2022-11-17] MEDS: TIMOLOL 0.5% OPHTH DROPS 5 ML BTL BOTH EYES SCH ×2 (08:40→21:10)
[2022-11-17] MEDS: MECLIZINE 25 MG TAB PO PRN (08:40)
[2022-11-17] MEDS: BRIMONIDINE TARTRATE 0.2% DROPS 5 ML BTL BOTH EYES SCH ×2 (08:40→21:10)
[2022-11-17] MEDS: metFORMIN 500 MG TAB PO SCH (08:44)
[2022-11-17] MEDS: LINAGLIPTIN 5 MG TABLET PO SCH (08:44)
[2022-11-17] MEDS: CYANOCOBALAMIN 500 MCG TAB PO SCH (08:46)
--- NOTE | 2022-11-17 09:26 | P.CNNES ---
History of Present Illness Consult date: 11/16/22 Requesting physician: Emmett Ghosh Reason for Consult: Vertigo, rule out CVA History of Present Illness: Patient is a 77-year-old female with previous history of vertigo, came to the hospital yesterday at 12:26 PM for another episode of vertigo. Patient states that on 11/13/2022 at 12:30 PM she was going to a baby shower. She was sitting in the roller chair. When she tried to stand up, her feet slipped, the chair rolled back and she fell back, hitting head on the floor. She did not pass out, but was stunned. She couldn't get up. Her brought her to the ER, where she underwent CT of the head, which showed no acute process. He of the cervical spine showed degenerative disc changes with endplate spurring most notably at C4-C5 and C5-C6. No acute fractureof the canal stenosis is evident. Patient was sent home for observation in the ER. patient started having recurrence of dizziness, vertigo since then. Every time she gets up, she feels spinning sensation but no nausea or vomiting. As the symptoms persisted, she came to the ER. She denies any diplopia, slurred speech, facial droop or any strokelike symptoms. Vital signs arrival blood pressure 136/73, pulse rate 70, temperature 97.8. Blood test shows normal CBC, CMP. Patient's last hemoglobin A1c 5.9 on 12/10/2013. CT head revealed age-related atrophic and chronic small vessel ischemic change without acute process. EKG shows sinus bradycardia Patient states that she has received scopolamine patch, and symptoms improved. However today the symptoms were still present when she was going to the bathroom. Patient tells me that she had history of about 5 or 6 episodes of vertigo in the last 10 years. Each episode lasts for about 2-3 days. She was told how to do the head exercises, that resolves the vertigo. The last episode of vertigo was about 2 or 3 years ago when she tried her head exercises, and it cleared in 2 days. Patient states she has a stent in her eye, therefore she cannot have MRI of the brain. Patient used to live in [place] for 25 years, but in the last 10 years she has been living in [place]. She just came to visit her family in [place] and is planning to relocate back to [place]. Patient has history of diabetes for 5 years, states it is controlled and her last A1c was 6.1. hypertension. She denies any use of tobacco or alcohol. Home medications include Zestoretic, aspirin 81 mg, Amaryl, Lipitor 10 mg, Janumet, Tenormin, hydralazine. patient says that she takes aspirin every other day. Review of Systems Constitutional: Reports weight loss, Denies chills, Denies fever Eyes: denies blurred vision, denies diplopia, denies pain Ears: deny: decreased hearing, ear discharge, earache, tinnitus Ears, nose, mouth and throat: Denies headache, Denies sore throat Cardiovascular: Denies chest pain, Denies shortness of breath Respiratory: Denies cough, Denies excessive sputum Gastrointestinal: Reports diarrhea, Denies abdominal pain, Denies nausea, Denies vomiting Genitourinary: Denies dysuria, Denies hematuria Musculoskeletal: Denies low back pain, Denies myalgias, Denies neck pain Musculoskeletal: right: hip pain Integumentary: Denies pruritus, Denies rash Neurological: Reports as per HPI Psychiatric: Reports anxiety, Denies depression Endocrine: Reports weight change, Denies fatigue Hematologic/Lymphatic: Denies easy bleeding, Denies easy bruising Past Medical History Past Medical History: Diabetes Mellitus, GERD/Reflux, Hyperlipidemia, Hypertension Additional Past Medical History / Comment(s): celiac History of Any Multi-Drug Resistant Organisms: None Reported Past Surgical History: Appendectomy, Cholecystectomy, Hysterectomy, Tonsillectomy Additional Past Surgical History / Comment(s): cardiac cath 3 or 4 years ago clear Past Anesthesia/Blood Transfusion Reactions: Previous Problems w/ Anesthesia Additional Past Anesthesia/Blood Transfusion Reaction / Comment(s): hard to wake up from Past Psychological History: No Psychological Hx Reported Smoking Status: Never smoker Past Alcohol Use History: None Reported Past Drug Use History: None Reported - Past Family History Mother Additional Family Medical History / Comment(s): emphazyma Medications and Allergies Home Medications Medication Instructions Recorded Confirmed Type Aspirin EC [Ecotrin Low Dose] 81 mg PO DAILY 11/15/22 11/15/22 History Atorvastatin [Lipitor] 10 mg PO DAILY 11/15/22 11/15/22 History Brimonidine Tartrate/Timolol 1 drop BOTH EYES BID 11/15/22 11/15/22 History [Combigan 0.2%-0.5% Eye Drops] Glimepiride [Amaryl] 4 mg PO BID 11/15/22 11/15/22 History Lisinopril/Hydrochlorothiazide 1 tab PO DAILY 11/15/22 11/15/22 History [Zestoretic 20-12.5] Vit C/E/Zn/Coppr/Lutein/Zeaxan 1 cap PO BID 11/15/22 11/15/22 History [Preservision Areds 2 Softgel] atenoloL [Tenormin] 50 mg PO BID 11/15/22 11/15/22 History hydrALAZINE HCL [Apresoline] 100 mg PO TID 11/15/22 11/15/22 History sitaGLIPtin PHOS/metFORMIN HCL 1 tab PO DAILY 11/15/22 11/15/22 History [Janumet Xr 100-1,000 mg Tablet] Allergies Allergy/AdvReac Type Severity Reaction Status Date / Time codeine Allergy Hallucinati Verified 11/15/22 15:44 ons Sulfa (Sulfonamide Allergy Rash/Hives Verified 11/15/22 15:44 Antibiotics) Physical Examination - Vital Signs Vital Signs: Vital Signs Temp Pulse Pulse Resp BP BP BP 11/16/22 11:28 97.9 F 54 L 16 11/16/22 08:00 97.5 F L 57 L 18 11/16/22 04:00 98.3 F 58 L 16 194/77 173/70 11/16/22 00:00 98.1 F 71 14 11/15/22 22:50 97.9 F 54 L 15 11/15/22 21:27 57 L 19 172/74 11/15/22 18:16 98.6 F 54 L 18 172/81 BP BP Pulse Ox 11/16/22 11:28 133/60 99 11/16/22 08:00 150/70 98 11/16/22 04:00 177/74 98 11/16/22 00:00 167/70 98 11/15/22 22:50 187/80 98 11/15/22 21:27 97 11/15/22 18:16 98 Intake and Output 11/16/22 11/16/22 11/16/22 06:59 14:59 22:59 Intake Total 685 Balance 685 Intake: Oral 685 Other: Voiding Method Toilet Toilet # Voids 1 1 # Bowel Movements 1 1 Weight 86.183 kg Patient is an elderly female, very pleasant, in no acute distress. Patient is alert awake oriented to time place and person. Speech and language functions are normal. Patient can name and repeat very well. No aphasia or dysarthria. Attention, concentration and fund of knowledge is adequate. On cranial nerve examination, pupils are equal, round and reacting to light, visual larry are full on confrontation, with no neglect on double simultaneous stimulation. Extraocular muscles are intact with no nystagmus. Face is symmetric, tongue protrudes to the midline. Palatal elevation and sensation normal, hearing and shoulder shrug normal, facial sensation normal. On muscle strength testing, there is no pronator drift and the strength is normal in arms and legs distally and proximally. Deep tendon reflexes are symmetric 1+ to 2, and plantars downgoing. Sensory to touch is equal with no neglect on double simultaneous stimulation. Cerebellar function showed no ataxia for [id number] testing. No dysdiadochokinesia. No ataxia for [id number] testing on either side. Tone and bulk of muscles normal. Gait deferred.. On general examination, there is no carotid bruit or murmur, S1-S2 audible. Chest is clear on consultation. Abdomen is soft nontender. No organomegaly, bowel sounds present. Peripheral pulses are present. No edema. Results - Laboratory Findings CBC and BMP: 11/15/22 13:06 11/15/22 13:06 Abnormal Lab Findings: Abnormal Labs 11/15/22 11/16/22 11/16/22 13:06 05:34 11:22 Chloride 108 H BUN 29 H Glucose 150 H POC Glucose (mg/dL) 129 H 117 H Assessment and Plan Assessment: * Probable benign positional peripheral vertigo. There is was triggered by a fall due to slipping on 11/13/2022. * Previous history of vertigo, also suspected BPPV. She had about 5-6 such episodes in the last 10 years, each lasting for 2 days. * Right ICA stenosis, 50% per CTA. * Diabetes * Hypertension * Hyperlipidemia Plan: * Patient probably has developed BPPV post fall and closed head injury (11/13/2022). * Start meclizine 25 mg 3 times a day as needed. Currently she has scopolamine patch. * CTA of the neck revealed 50% diameter reduction right ICA. * CTA of the head showed absence of right GURVINDER A1 segment which could be an anatomic variant. Strict correlation is advised to exclude large vessel occlusion. * Continue aspirin 81 mg and Lipitor 10 mg daily. * Check B12, folate. * If the symptoms persist, then may suggest outpatient vestibular rehabilitation. * Neurologically clear, if the vertigo resolves, and patient cleared by PT and OT. * Thank you for the consult. Addendum: Vitamin B12 227. Folate 9.2. We will give 1 dose of B12 1000 g IM. Then continue vitamin B12 1000 g orally daily. Time with Patient: Greater than 30
[2022-11-17] MEDS ORDERED: CYANOCOBALAMIN 1,000 MCG/ML 1 ML VIAL IM ONE (10:00)
[2022-11-17] MEDS: GLIMEPIRIDE 4 MG TAB PO SCH ×2 (10:01→21:10)
[2022-11-17] MEDS: LISINOPRIL-HCTZ 20-12.5 MG 1 EACH TAB PO SCH (10:01)
[2022-11-17 12:10] LABS: Glucose,Whole Blood 86 mg/dL (70-110)
--- NOTE | 2022-11-17 14:01 | P.PN ---
Subjective Progress Note Date: 11/17/22 Hospital Course: 77-year-old female with severe hypertension, diabetes mellitus, dyslipidemia presenting with persistent dizziness and lightheadedness. Positive for orthostatic hypotension. Has been hypertensive labs mostly unremarkable. CT had did not show any acute process. CT angiogram head and neck showed absence of right GURVINDER A1 segment which could be an anatomic variant. Patient admitted for further workup for dizziness and lightheadedness and possible stroke. Neurology consulted. Also has B12 deficiency Echocardiogram pending. Subjective: She is seen and examined at bedside. No acute events overnight. Her symptoms are only present when she gets out of the bed. Her symptoms are more consistent with lightheadedness. Improving. Pertinent positives and negatives as discussed above, a complete review of systems was performed and all other systems are negative. Vitals Signs Reviewed. General: nontoxic, no distress, appears at stated age Derm: warm, dry Head: atraumatic, normocephalic, symmetric Eyes: EOMI, no lid lag, anicteric sclera Mouth: no lip lesion, mucus membranes moist Cardiovascular: S1S2 reg, no murmur Lungs: CTA bilateral, no rhonchi, no rales , no accessory muscle use Abdominal: soft, nontender to palpation, no guarding, no appreciable organomegaly Ext: no gross muscle atrophy, no edema, no contractures Neuro: CN II-XI grossly intact, no focal neuro deficits Psych: Alert, oriented, appropriate affect Data Reviewed Today: Pertinent Labs: Blood glucose range between 86-132, B12 227, folic acid 9.2 Imaging: No new imaging Assessment and Plan: Orthostatic hypotension, resolved Presyncope/syncope Vertigo Absence of right GURVINDER A1 segment B12 deficiency Hypertension, uncontrolled Diabetes mellitus -Positive for orthostatic, repeat negative -Possibly related to hydralazine -Discontinued hydralazine, no amlodipine -Lisinopril, hydrochlorothiazide, atenolol continued -Echocardiogram pending -Neurology following -B12 levels low normal, supplement started -Continue home antidiabetics DVT ppx: Subcu heparin Code status: Full Code Anticipated discharge place: Home Anticipated discharge time: Likely today or tomorrow once Echo results Objective - Vital Signs Vital signs: Vital Signs Temp 97.4 F L 11/17/22 13:34 Pulse 59 L 11/17/22 13:34 Resp 18 11/17/22 13:34 BP 163/77 11/17/22 13:34 Pulse Ox 99 11/17/22 13:34 FiO2 Intake & Output 11/16/22 11/17/22 11/17/22 18:59 06:59 18:59 Intake Total 1225 236 Balance 1225 236 Weight 86.183 kg 90 kg Intake: Oral 1225 236 Other: Voiding Method Toilet Toilet Toilet # Voids 2 1 1 # Bowel Movements 1 - Labs CBC & Chem 7: 11/15/22 13:06 11/15/22 13:06 Labs: Abnormal Lab Results - Last 24 Hours (Table) 11/16/22 11/17/22 Range/Units 16:22 06:07 POC Glucose (mg/dL) 115 H 132 H (70-110) mg/dL
[2022-11-17 16:13] LABS: Glucose,Whole Blood 143 mg/dL (70-110)
--- NOTE | 2022-11-17 17:39 | CA ---
Transthoracic Echo Report Name: Angela Rojas Age: 77 Gender: F : 1945 Exam Date: 11/16/2022 13:40 Exam Location: [facility] Echo Ht (in): 63 Wt (lb): 190 Ordering Physician: Cm Thacker MD Attending/Referring Phys: Lens Hardener Eve Ventura RDCS Procedure CPT: Indications: Syncope Cardiac Hx: Technical Quality: Good Contrast 1: Total Dose (mL): Contrast 2: Total Dose (mL): MEASUREMENTS (Male / Female) Normal Values 2D ECHO LV Diastolic Diameter PLAX 4.4 cm 4.2 - 5.9 / 3.9 - 5.3 cm LV Systolic Diameter PLAX 2.8 cm IVS Diastolic Thickness 1.3 cm 0.6 - 1.0 / 0.6 - 0.9 cm LVPW Diastolic Thickness 1.2 cm 0.6 - 1.0 / 0.6 - 0.9 cm LV Relative Wall Thickness 0.6 RV Internal Dim ED PLAX 2.8 cm LA Systolic Diameter LX 4.0 cm 3.0 - 4.0 / 2.7 - 3.8 cm LV Diastolic Volume MOD BP 75.1 cm??? 67 - 155 / 56 - 104 cm??? LV Systolic Volume MOD BP 27.5 cm??? 22 - 58 / 19 - 49 cm??? LV Ejection Fraction MOD BP 63.4 % >= 55 % LV Cardiac Index MOD BP 1360.8 cm???/min???m??? LV Diastolic Volume MOD 4C 97.4 cm??? LV Systolic Volume MOD 4C 47.0 cm??? LV Ejection Fraction MOD 4C 51.7 % LV Cardiac Index MOD 4C 1440.7 cm???/min???m??? LV Diastolic Length 4C 7.2 cm LV Systolic Length 4C 6.2 cm LV Diastolic Volume MOD 2C 76.7 cm??? LV Systolic Volume MOD 2C 29.3 cm??? LV Ejection Fraction MOD 2C 61.8 % LV Cardiac Index MOD 2C 1354.6 cm???/min???m??? LV Diastolic Length 2C 6.6 cm LV Systolic Length 2C 6.1 cm LA Volume 71.2 cm??? 18 - 58 / 22 - 52 cm??? M-MODE Aortic Root Diameter MM 3.0 cm MV E Point Septal Separation 0.8 cm AV Cusp Separation MM 1.7 cm DOPPLER AV Peak Velocity 155.1 cm/s AV Peak Gradient 9.6 mmHg MV Area PHT 3.0 cm??? Mitral E Point Velocity 109.5 cm/s Mitral A Point Velocity 99.8 cm/s Mitral E to A Ratio 1.1 MV Deceleration Time 249.4 ms MV E' Velocity 6.5 cm/s Mitral E to MV E' Ratio 16.9 FINDINGS Left Ventricle Left ventricular ejection fraction is estimated at 60-65 %. Left ventricular cavity size normal. No obvious regional wall motion abnormality. Mild concentric LVH. No significant diastolic dysfunction Right Ventricle Normal right ventricular size. Unable to estimate the right ventricular systolic pressure. Right Atrium Normal right atrial size. Left Atrium Mildly increased left atrial volume. Mitral Valve Structurally normal mitral valve. Mitral annular calcification. No mitral stenosis, regurgitation or prolapse. Aortic Valve Trileaflet aortic valve. No aortic valve stenosis or regurgitation. Tricuspid Valve Structurally normal tricuspid valve. No tricuspid stenosis, regurgitation or prolapse. Pulmonic Valve Structurally normal pulmonic valve. Trace pulmonic regurgitation. Pericardium Normal pericardium. No pericardial effusion. Aorta Normal size aortic root and proximal ascending aorta. CONCLUSIONS Normal LV size and systolic function. LVEF estimated at 60-65% Moderate concentric LVH No obvious regional wall motion abnormality No significant valvular pathology Mild left atrial dilatation dilatation No prior echo to compare with Previewed by: Dr Bartolo Miguel (Electronically Signed) Final Date: 17 November 2022 17:38
[2022-11-17 20:43] LABS: Glucose,Whole Blood 173 mg/dL (70-110)
[2022-11-17] MEDS ORDERED: JANUMET PO SCH (21:00)
[2022-11-18] MEDS: HEPARIN SODIUM,PORCINE 5,000 UNIT/ML 1 ML VIAL SQ SCH ×2 (00:25→08:49)
[2022-11-18 02:04] VITALS: PULSE 61
[2022-11-18 06:02] LABS: Glucose,Whole Blood 128 mg/dL (70-110)
[2022-11-18 08:49] VITALS: BP 143/77; RESP 20; TEMP 98.1
[2022-11-18] MEDS: LISINOPRIL-HCTZ 20-12.5 MG 1 EACH TAB PO SCH (08:54)
[2022-11-18] MEDS: CYANOCOBALAMIN 500 MCG TAB PO SCH (08:54)
[2022-11-18] MEDS: GLIMEPIRIDE 4 MG TAB PO SCH (08:54)
[2022-11-18] MEDS: ATORVASTATIN 10 MG TAB PO SCH (08:54)
[2022-11-18] MEDS: amLODIPine 10 MG TAB PO SCH (08:54)
[2022-11-18] MEDS: ASPIRIN 81 MG PO SCH (08:54)
[2022-11-18] MEDS: atenoloL 50 MG TAB PO SCH (08:54)
[2022-11-18] MEDS: MECLIZINE 25 MG TAB PO PRN (08:59)
[2022-11-18] MEDS: TIMOLOL 0.5% OPHTH DROPS 5 ML BTL BOTH EYES SCH (09:00)
[2022-11-18] MEDS: BRIMONIDINE TARTRATE 0.2% DROPS 5 ML BTL BOTH EYES SCH (09:00)
--- NOTE | 2022-11-18 11:09 | P.DS ---
Providers Date of admission: 11/15/22 19:06 Expected date of discharge: 11/18/22 Attending physician: Duke Plascencia MD Consults: 11/15/22 19:06 Consult Physician Routine Consulting Provider: Michael Osei Consult Reason/Comments: Vertigo, r/o CVA Do you want consulting provider notified?: Yes, Notify in am Primary care physician: Physician Nonstaff Hospital Course: Discharge Diagnosis: Orthostatic hypotension Presyncope/syncope Vertigo Absence of right GURVINDER A1 segment, anatomical variant B12 deficiency Hypertension, uncontrolled Diabetes mellitus Hospital Course: 77-year-old female with severe hypertension, diabetes mellitus, dyslipidemia presenting with persistent dizziness and lightheadedness. Positive for orthostatic hypotension. Has been hypertensive, labs mostly unremarkable. CT had did not show any acute process. CT angiogram head and neck showed absence of right GURVINDER A1 segment which could be an anatomic variant. Patient admitted for further workup for dizziness and lightheadedness and possible stroke. Neurology consulted. Also has B12 deficiency, supplemented started. Echocardiogram did not show any valvular abnormalities. Patient has been on hydralazine, discontinued, started on amlodipine. Orthostatic hypotension resolved. Still having occasional vertigo symptoms with moving her head, being discharged on meclizine as needed. Patient seen and examined at bedside. Vital signs reviewed and stable. General: nontoxic, no distress, appears at stated age Derm: warm, dry Head: atraumatic, normocephalic, symmetric Eyes: EOMI, no lid lag, anicteric sclera Mouth: no lip lesion, mucus membranes moist Cardiovascular: S1S2 reg, no murmur Lungs: CTA bilateral, no rhonchi, no rales , no accessory muscle use Abdominal: soft, nontender to palpation, no guarding, no appreciable organomegaly Ext: no gross muscle atrophy, no edema, no contractures Neuro: CN II-XI grossly intact, no focal neuro deficits Psych: Alert, oriented, appropriate affect A total of 36 minutes of time were spent preparing this complex discharge summary. Patient was discharged on 11/18/22 at 8:28. Patient Condition at Discharge: Stable Plan - Discharge Summary Discharge Rx Participant: Yes New Discharge Prescriptions: New amLODIPine [Norvasc] 10 mg PO DAILY #60 tab Meclizine [Antivert] 25 mg PO TID PRN #30 tab PRN Reason: Vertigo Cyanocobalamin [Vitamin B-12] 1,000 mcg PO DAILY #60 tab Continue Vit C/E/Zn/Coppr/Lutein/Zeaxan [Preservision Areds 2 Softgel] 1 cap PO BID atenoloL [Tenormin] 50 mg PO BID sitaGLIPtin PHOS/metFORMIN HCL [Janumet Xr 100-1,000 mg Tablet] 1 tab PO DAILY Brimonidine Tartrate/Timolol [Combigan 0.2%-0.5% Eye Drops] 1 drop BOTH EYES BID Atorvastatin [Lipitor] 10 mg PO DAILY Lisinopril/Hydrochlorothiazide [Zestoretic 20-12.5] 1 tab PO DAILY Aspirin EC [Ecotrin Low Dose] 81 mg PO DAILY Glimepiride [Amaryl] 4 mg PO BID Discontinued hydrALAZINE HCL [Apresoline] 100 mg PO TID Discharge Medication List Aspirin EC [Ecotrin Low Dose] 81 mg PO DAILY 11/15/22 [History] Atorvastatin [Lipitor] 10 mg PO DAILY 11/15/22 [History] Brimonidine Tartrate/Timolol [Combigan 0.2%-0.5% Eye Drops] 1 drop BOTH EYES BID 11/15/22 [History] Glimepiride [Amaryl] 4 mg PO BID 11/15/22 [History] Lisinopril/Hydrochlorothiazide [Zestoretic 20-12.5] 1 tab PO DAILY 11/15/22 [History] Vit C/E/Zn/Coppr/Lutein/Zeaxan [Preservision Areds 2 Softgel] 1 cap PO BID 11/15/22 [History] atenoloL [Tenormin] 50 mg PO BID 11/15/22 [History] sitaGLIPtin PHOS/metFORMIN HCL [Janumet Xr 100-1,000 mg Tablet] 1 tab PO DAILY 11/15/22 [History] Cyanocobalamin [Vitamin B-12] 1,000 mcg PO DAILY #60 tab 11/18/22 [Rx] Meclizine [Antivert] 25 mg PO TID PRN #30 tab 11/18/22 [Rx] amLODIPine [Norvasc] 10 mg PO DAILY #60 tab 11/18/22 [Rx] Follow up Appointment(s)/Referral(s): Nonstaff,Physician [Primary Care Provider] - 1-2 days Patient Instructions/Handouts: Vertigo (DC), Syncope (DC) Activity/Diet/Wound Care/Special Instructions: Please see your PCP. Discharge Disposition: HOME SELF-CARE
[2022-11-18 11:16] LABS: Glucose,Whole Blood 155 mg/dL (70-110)
--- NOTE | 2022-11-23 14:56 | P.PN ---
Subjective Progress Note Date: 11/17/22 Patient was seen for a follow-up. Patient is laying comfortably in the bed. Patient states that she is still having spinning but a lot better. Patient does have history of celiac disease as well as diabetes. Telemetry monitoring showing sinus rhythm, with sinus bradycardia, sometimes in 30s. Some PACs. Informed PCP about telemetry rhythm, if any further workup or evaluation is recommended. Will defer to IM. Objective - Vital Signs Vital signs: Vital Signs Temp 97.4 F L 11/17/22 13:34 Pulse 59 L 11/17/22 13:34 Resp 18 11/17/22 13:34 BP 163/77 11/17/22 13:34 Pulse Ox 99 11/17/22 13:34 FiO2 Intake & Output 11/16/22 11/17/22 11/17/22 18:59 06:59 18:59 Intake Total 1225 236 Balance 1225 236 Weight 86.183 kg 90 kg Intake: Oral 1225 236 Other: Voiding Method Toilet Toilet Toilet # Voids 2 1 1 # Bowel Movements 1 - Exam Patient's mental status, speech and language functions are normal. Cranial nerves are normal. Muscle systems is normal. No ataxia for [id number] testing. Gait is normal. - Labs CBC & Chem 7: 11/15/22 13:06 11/15/22 13:06 Labs: Abnormal Lab Results - Last 24 Hours (Table) 11/17/22 11/17/22 Range/Units 06:07 16:12 POC Glucose (mg/dL) 132 H 143 H (70-110) mg/dL Assessment and Plan Assessment: * Probable benign positional peripheral vertigo. This was probably triggered by a fall due to slipping on 11/13/2022. * Previous history of vertigo, also suspected BPPV. She had about 5-6 such episodes in the last 10 years, each lasting for 2 days. * Right ICA stenosis, 50% per CTA. * Diabetes * Hypertension * Hyperlipidemia Plan: * Patient probably has developed BPPV post fall and closed head injury (11/13/2022). * Start meclizine 25 mg 3 times a day as needed. * CTA of the neck revealed 50% diameter reduction right ICA. * CTA of the head showed absence of right GURVINDER A1 segment which could be an anatomic variant. Strict correlation is advised to exclude large vessel occlusion. * Continue aspirin 81 mg and Lipitor 10 mg daily. * Recommend patient follow up with vascular surgery as an outpatient, or just perform surveillance carotid Doppler every 6-12 months. * Patient states that in the past when she had vertigo, she would try Cher maneuver that was taught to her in the past. She was recommended to try Cher maneuver here in the hospital. Hopefully it will resolve the vertigo. * If the symptoms persist, then may suggest outpatient vestibular rehabilitation. * Vitamin B12 227. Folate 9.2. We will give 1 dose of B12 1000 g IM. Then continue vitamin B12 1000 g orally daily. * Neurologically clear for discharge.
== END 2022-11-18 13:50 | disposition home or self-care (01) ==
LOC: EC 12:26 → 3SCARD 19:06 → 4SSUR 11-17 05:39
PROVIDERS: ADMIT Internal Medicine; ATTEND Internal Medicine
DX: I95.1 Orthostatic hypotension (principal); W05.0XXA Fall from non-moving wheelchair, initial encounter; I10 Essential (primary) hypertension; Q28.3 Other malformations of cerebral vessels; E53.8 Deficiency of other specified B group vitamins; E11.9 Type 2 diabetes mellitus without complications; K90.0 Celiac disease; E78.5 Hyperlipidemia, unspecified; K21.9 Gastro-esophageal reflux disease without esophagitis; Z90.49 Acquired absence of other specified parts of digestive tract; Z90.710 Acquired absence of both cervix and uterus; Z98.890 Other specified postprocedural states; Z87.891 Personal history of nicotine dependence; Z79.84 Long term (current) use of oral hypoglycemic drugs; Z79.82 Long term (current) use of aspirin; Z79.899 Other long term (current) drug therapy; Z88.5 Allergy status to narcotic agent; Z88.2 Allergy status to sulfonamides
CPT/HCPCS: 96372; 99285; 36415; 93306; 97116; 97530; 97162; 80053; 82607; 82746; 85025; 70496; 70450; 70498; G0378 ×4; J3420; Q9967